=== PATIENT | female | born 1975 ===

== ENCOUNTER 2018-08-23 15:18 | Emergency (ER) | payer OTHER ==
[2018-08-23 15:37] VITALS: RESP 16; TEMP 98.6; O2SAT 99
--- NOTE | 2018-08-23 16:17 | ED PDOC ---
HPI: General Adult Time Seen by Provider: 08/23/18 15:51 Chief Complaint (Nursing): Abdominal Pain Chief Complaint (Provider): abd pain History Per: Patient, Family (Patient's at bedside is translating for patient in German) Additional Complaint(s): 42-year-old female presents with upper abdominal pain and acid reflux symptoms for several months. Patient states symptoms have worsened in the past 2-3 weeks and she has now been vomiting. Patient has decreased appetite as well. She denies any fever or chills. patient also complains of intermittent chest pain. She denies any cough or shortness of breath. PMD: none Past Medical History Vital Signs: Last Vital Signs Temp 98.6 F 08/23/18 15:34 Pulse 78 08/23/18 15:34 Resp 16 08/23/18 15:34 BP 165/92 H 08/23/18 15:34 Pulse Ox 99 08/23/18 15:34 - Family History Family History: States: No Known Family Hx - Home Medications Home Medications: Ambulatory Orders Medication Instructions Recorded Omeprazole 40 mg PO DAILY #30 cap 08/23/18 - Allergies Allergies/Adverse Reactions: Allergies Allergy/AdvReac Type Severity Reaction Status Date / Time No Known Allergies Allergy Verified 08/23/18 15:37 - Laboratory Results Result Diagrams: 08/23/18 17:33 08/23/18 17:33 Urine POC: Negative Urine dip results: Negative for: Leukocyte Esterase, Blood, Nitrate, Ketones, Glucose, Bilirubin, Protein - ECG Interpretation Of ECG: NSR 69 bpm, no acute changes, reviewed by PA and ED attending O2 Sat by Pulse Oximetry: 99 Pulse Ox Interpretation: Normal - Other Rad Abd US X-Ray: Read By Radiologist X-Ray Interpretation: normal study bedside chest X-Ray: Read By Radiologist X-Ray Interpretation: no acute finding Medical Decision Making Medical Decision Makin42 year old female with abdominal pain Plan: CBC CMP Lipase Abd US CXR EKG IVF IV zofran IV toradol Patient reports improvement to symptoms after meds given. Patient is aware of all diagnostic testing results, all questions answered. Patient was given prescription for omeprazole and dietary instructions for relief of gastritis and acid reflux. She was referred to clinic for follow up. Disposition - Clinical Impression Clinical Impression: Gastritis, Acid reflux - Patient ED Disposition Is Patient to be Admitted: No Counseled Patient/Family Regarding: Studies Performed, Diagnosis, Need For Followup, Rx Given - Disposition Referrals: [facility] [Outside] Disposition: Routine/Home Disposition Time: 19:23 Condition: STABLE Additional Instructions: Take prescription meds as directed. Follow dietary instructions. Follow-up with clinic in 2-3 days. Prescriptions: Omeprazole 40 mg PO DAILY #30 cap Instructions: Gastritis, Acid Reflux (Gastroesophageal Reflux Disease), Adult (DC) Forms: [employer] (German) Print Language: CHINESE Results - Diagnostic Imaging Results Radiology Results Abdomen Ultrasound 08/23/18 17:22 IMPRESSION: Normal examination. - Lab Results Lab Results: 08/23/18 08/23/18 17:33 17:33 WBC 7.1 RBC 4.38 Hgb 13.4 Hct 40.4 MCV 92.3 MCH 30.7 MCHC 33.3 RDW 13.1 Plt Count 200 Sodium 140 Potassium 4.0 Chloride 107 Carbon Dioxide 24 Anion Gap 13 BUN 7 Creatinine 0.6 L Est GFR ( Amer) > 60 Est GFR (Non-Af Amer) > 60 Random Glucose 85 Calcium 9.1 Total Bilirubin 0.2 AST 28 ALT 31 Alkaline Phosphatase 72 Total Protein 7.3 Albumin 4.0 Globulin 3.3 Albumin/Globulin Ratio 1.2 Lipase 162
[2018-08-23] MEDS ORDERED: Sodium Chloride 0.9% 1,000 ML IV STA (17:22)
[2018-08-23 17:39] LABS: HEMOGLOBIN 13.4 g/dL (12.0-16.0); MEAN CELL VOLUME 92.3 fl (81.0-99.0); MEAN CORPUSCULAR HEMOGLOBIN 30.7 pg (27.0-31.0); MEAN CORPUSCULAR HGB CONC 33.3 g/dL (33.0-37.0); RBC 4.38 Mil/uL (3.80-5.20); RED CELL DISTRIBUTION WIDTH 13.1 % (11.5-14.5); WHITE BLOOD COUNT 7.1 K/uL (4.8-10.8)
[2018-08-23 17:57] LABS: ALB/GLOB RATIO 1.2 (1.0-2.1); ALT/SGPT 31 U/L (9-52); AST/SGOT 28 U/L (14-36); BLOOD UREA NITROGEN 7 mg/dl (7-17); CALCIUM 9.1 mg/dL (8.4-10.2); GFR NON-AFRICAN AMERICAN > 60; LIPASE 162 U/L (23-300)
--- NOTE | 2018-08-23 18:58 | US ---
Date of service: 08/23/2018 HISTORY: generalized abd pain, bloating COMPARISON: None. TECHNIQUE: Grayscale imaging was performed. FINDINGS: LIVER: Measures 14.2 cm. Normal echogenicity of the liver parenchyma. No mass. No intrahepatic bile duct dilatation. GALLBLADDER: There are no gallstones, wall thickening or pericholecystic fluid. The sonographic Klein's sign is negative. COMMON BILE DUCT: Measures 4.1 mm. No stones. No dilatation. PANCREAS: Unremarkable as visualized. No mass. No ductal dilatation. RIGHT KIDNEY: Measures 10.2cm. Normal echogenicity. No calculus, mass, or hydronephrosis. LEFT KIDNEY: Measures 10.3cm. Normal echogenicity. No calculus, mass, or hydronephrosis. SPLEEN: Normal in size and contour. No mass. AORTA: No aneurysmal dilatation. IVC: Unremarkable. OTHER FINDINGS: None. IMPRESSION: Normal examination.
[2018-08-23 19:58] VITALS: BP 142/60; PULSE 72
--- NOTE | 2018-08-24 13:07 | RAD ---
HISTORY: pain COMPARISON: No prior. TECHNIQUE: Chest, one view. FINDINGS: LUNGS: Azygos lobe, anatomic variant. No focal consolidation. Please note that chest x-ray has limited sensitivity for the detection of pulmonary masses. PLEURA: No significant pleural effusion identified. No definite pneumothorax . CARDIOVASCULAR: The cardiomediastinal silhouette appears within normal limits of size. No significant atherosclerotic calcification present. OSSEOUS STRUCTURES: No acute osseous abnormality identified. VISUALIZED UPPER ABDOMEN: Unremarkable. OTHER FINDINGS: None. IMPRESSION: No focal consolidation identified.
--- NOTE | 2018-08-24 15:56 | CARD ---
APPROVED REPORT Date of service: 08/23/2018 EKG Measurement Heart [id number] [place] 128P-20 [id number] <Conclusion> Normal sinus rhythm Normal ECG
== END 2018-08-23 19:57 | disposition home or self-care (01) ==
LOC: H.ER 15:18
DX: K29.70 Gastritis, unspecified, without bleeding (principal); K21.9 Gastro-esophageal reflux disease without esophagitis
CPT/HCPCS: 71045; 76700; 80053; 81025; 83690; 85027; 93005; 96360; 99284; J1885; J2405; J7030

== ENCOUNTER 2018-11-26 12:59 | Emergency (ER) | payer OTHER ==
[2018-11-26] MEDS ORDERED: Sodium Chloride 0.9% 1,000 ML IV STA (13:25)
--- NOTE | 2018-11-26 13:26 | ED PDOC ---
HPI: Abdomen Time Seen by Provider: 11/26/18 13:17 Chief Complaint (Nursing): Abdominal Pain Chief Complaint (Provider): Left lower quadrant abdominal pain History Per: Patient History/Exam Limitations: no limitations Current Symptoms Are (Timing): Still Present Location Of Pain/Discomfort: LLQ Associated Symptoms: Other (dizziness) Additional History Per: Patient Additional Complaint(s): 43yo female, otherwise well, comes to ER reporting left lower abdominal pain x 1 week as well as dizziness for the past 2 weeks. She additionally states she had an episode of vomiting and diarrhea (non-bloody) and felt like she was going to pass out. She denies any chest pain, palpitations or weakness. No additional complaints. PMD: None LMP: Irregular, last during early november Abnormal Vaginal Bleeding: No Past Medical History Reviewed: Historical Data, Nursing Documentation, Vital Signs Vital Signs: Last Vital Signs Temp 97.9 F 11/26/18 13:08 Pulse 79 11/26/18 13:08 Resp 16 11/26/18 13:08 BP 116/73 11/26/18 13:08 Pulse Ox 99 11/26/18 13:08 - Medical History PMH: Gastritis - Surgical History Surgical History: No Surg Hx - Family History Family History: States: No Known Family Hx - Home Medications Home Medications: Ambulatory Orders Medication Instructions Recorded Omeprazole 40 mg PO DAILY #30 cap 08/23/18 Naproxen [Naprosyn] 500 mg PO Q12H #20 tab 11/26/18 - Allergies Allergies/Adverse Reactions: Allergies Allergy/AdvReac Type Severity Reaction Status Date / Time No Known Allergies Allergy Verified 08/23/18 15:37 Review of Systems ROS Statement: Except As Marked, All Systems Reviewed And Found Negative Constitutional: Negative for: Fever, Chills Cardiovascular: Negative for: Chest Pain, Palpitations Gastrointestinal: Positive for: Abdominal Pain Neurological: Positive for: Dizziness Physical Exam - Reviewed Nursing Documentation Reviewed: Yes Vital Signs Reviewed: Yes - Physical Exam Appears: Positive for: Non-toxic, No Acute Distress Head Exam: Positive for: ATRAUMATIC, NORMAL INSPECTION, NORMOCEPHALIC Skin: Positive for: Normal Color, Warm, DRY Eye Exam: Positive for: Normal appearance, EOMI, PERRL. Negative for: Scleral icterus Neck: Positive for: Normal, Painless ROM Cardiovascular/Chest: Positive for: Regular Rate, Rhythm. Negative for: Tachycardia Respiratory: Positive for: Normal Breath Sounds. Negative for: Respiratory Distress Gastrointestinal/Abdominal: Positive for: Normal Exam, Soft. Negative for: Tenderness, Mass, Guarding, Rebound Back: Positive for: Normal Inspection. Negative for: L CVA Tenderness, R CVA Tenderness Extremity: Positive for: Normal ROM Neurological/Psych: Positive for: Awake, Alert, Normal Tone, Oriented (x 3) - Laboratory Results Result Diagrams: 11/26/18 13:55 11/26/18 13:55 - ECG O2 Sat by Pulse Oximetry: 99 (RA) Pulse Ox Interpretation: Normal Medical Decision Making Medical Decision Makinyo female with abdominal pain, dizziness Plan: -- Labs -- EKG -- US Transvaginal [id number] Labs reviewed, no clinically significant abnormalities noted. 1535 US Transvaginal FINDINGS: UTERUS: Measures 9.3 x 7.0 x 4.8 cm. Normal in size and appearance. There is a soft tissue lesion at the right uterine body/fundus measures 4.6 x 4.4 x 4.4 centimeter likely represent fibroid. ENDOMETRIUM: Measures 21.8 mm in diameter. Unremarkable. CERVIX: No cervical abnormality identified. RIGHT OVARY: Measures 3.1 x 1.6 x 1.6 cm. No solid mass. Normal flow. LEFT OVARY: Measures 3.1 x 2.5 x 1.4 cm. No solid mass. Normal flow. FREE FLUID: No significant free fluid noted. OTHER FINDINGS: None. IMPRESSION: Heterogeneous thick endometrium measures up to 2.2 centimeter. Right uterine soft tissue lesion likely represent fibroid measures 4.6 x 4.4 x 4.4 centimeter. Scribe Attestation: Documented by Isaura Laurent, acting as a scribe for Gian Fuentes MD. Provider Scribe Attestation: All medical record entries made by the Scribe were at my direction and personally dictated by me. I have reviewed the chart and agree that the record accurately reflects my personal performance of the history, physical exam, medical decision making, and the department course for this patient. I have also personally directed, reviewed, and agree with the discharge instructions and disposition. Disposition - Clinical Impression Clinical Impression: Uterine fibroid - Patient ED Disposition Is Patient to be Admitted: No Counseled Patient/Family Regarding: Studies Performed, Diagnosis, Need For Followup, Rx Given - Disposition Referrals: [facility] [Outside] Disposition: Routine/Home Disposition Time: 16:08 Condition: FAIR Prescriptions: Naproxen [Naprosyn] 500 mg PO Q12H #20 tab Instructions: Uterine Fibroids Forms: [facility] (Spanish) Print Language: IRAQI
[2018-11-26 14:15] LABS: BASO % 0.2 % (0.0-2.0); EOS # 0.3 K/uL (0.0-0.7); HEMOGLOBIN 13.5 g/dL (12.0-16.0); LYMPH # 2.6 K/uL (1.0-4.3); LYMPH % 33.2 % (20.0-40.0); MEAN CELL VOLUME 91.5 fl (81.0-99.0); MEAN CORPUSCULAR HEMOGLOBIN 30.7 pg (27.0-31.0); MEAN CORPUSCULAR HGB CONC 33.5 g/dL (33.0-37.0); MEAN PLATELET VOLUME 9.6 fl (7.2-11.7); MONO # 0.6 K/uL (0.0-0.8); MONO % 7.5 % (0.0-10.0); NEUT # 4.4 K/uL (1.8-7.0); NEUT % 55.1 % (50.0-75.0); NRBC % 0.1 % (0.0-0.0); RBC 4.39 Mil/uL (3.80-5.20)
[2018-11-26 14:19] LABS: ALB/GLOB RATIO 1.2 (1.0-2.1); ALBUMIN 4.1 g/dL (3.5-5.0); ALT/SGPT 24 U/L (9-52); AST/SGOT 24 U/L (14-36); BLOOD UREA NITROGEN 12 mg/dl (7-17); CALCIUM 9.4 mg/dL (8.4-10.2); GFR NON-AFRICAN AMERICAN > 60
--- NOTE | 2018-11-26 15:30 | US ---
Date of service: 11/26/2018 HISTORY: LLQ pain r/o cyst COMPARISON: None available. TECHNIQUE: Transabdominal and endovaginal ultrasound examination of the pelvis was performed. FINDINGS: UTERUS: Measures 9.3 x 7.0 x 4.8 cm. Normal in size and appearance. There is a soft tissue lesion at the right uterine body/fundus measures 4.6 x 4.4 x 4.4 centimeter likely represent fibroid. ENDOMETRIUM: Measures 21.8 mm in diameter. Unremarkable. CERVIX: No cervical abnormality identified. RIGHT OVARY: Measures 3.1 x 1.6 x 1.6 cm. No solid mass. Normal flow. LEFT OVARY: Measures 3.1 x 2.5 x 1.4 cm. No solid mass. Normal flow. FREE FLUID: No significant free fluid noted. OTHER FINDINGS: None. IMPRESSION: Heterogeneous thick endometrium measures up to 2.2 centimeter. Right uterine soft tissue lesion likely represent fibroid measures 4.6 x 4.4 x 4.4 centimeter.
[2018-11-26 17:10] VITALS: BP 100/54; PULSE 73; RESP 18; TEMP 98.6; O2SAT 100
--- NOTE | 2018-11-27 06:16 | CARD ---
APPROVED REPORT Date of service: 11/26/2018 EKG Measurement Heart [id number] [place] 130P-8 [id number] <Conclusion> Normal sinus rhythm Normal ECG
== END 2018-11-26 17:30 | disposition home or self-care (01) ==
LOC: H.ER 12:59
DX: D25.9 Leiomyoma of uterus, unspecified (principal); R93.89 Abnormal findings on diagnostic imaging of other specified body structures
CPT/HCPCS: 76830; 80053; 81025; 85025; 93005; 99284; J7030